=== PATIENT | male | born 2000 | race African-American/Black ===

== ENCOUNTER 2021-07-24 07:29 | Emergency (ER) | payer OTHER, SELFPAY ==
[2021-07-24 07:30] VITALS: BP 113/85; PULSE 61; RESP 20; TEMP 36.3; O2SAT 100; BMI 21.7
--- NOTE | 2021-07-24 07:45 | RAD_ITS ---
STUDY: X-RAY - ACUTE ABDOMINAL SERIES REASON FOR EXAM: Male, 20 years old. Abd pain TECHNIQUE: Single view of the chest. Supine, and erect view(s) of the abdomen were obtained. COMPARISON: None. FINDINGS: The lungs are clear and expanded. Normal size heart. Normal mediastinum and olivia. Normal visualized pulmonary arteries. Normal visualized aortic arch and descending thoracic aorta. There is a non-specific bowel gas pattern. The soft tissue structures of the abdomen and pelvis are unremarkable. Normal visualized osseous structures. RAD/Acute Abdomen Inc Chest IMPRESSION: Normal x-ray examination of the chest, abdomen, and pelvis. Electronically Signed: Abdias Joseph MD at 9:15 EDT , Service support ,
--- NOTE | 2021-07-24 07:47 | EX.ED.DYSGE1 ---
HPI History of Present Illness Chief Complaint: Abd Pain Narrative Narrative: Patient is a otherwise healthy 20-year-old male with past medical history of anxiety. He states he began with generalized abdominal discomfort and bouts of vomiting yesterday. He states that the vomiting has improved but the nausea has persisted. He states that his anxiety is also spiking and he is having lots of tremors and shakes. He denies any fevers or chills but was concerned that as his symptoms are lasting longer than a normal anxiety attack he was becoming dehydrated or infected and therefore comes in for evaluation. [facility] Medical History (Updated 07/24/21 @ 09:[address] Mynor Aragon, DO) Anxiety Home Medications ondansetron HCl [Zofran] 4 mg PO Q8H PRN #21 tab 07/24/21 [Rx Last Taken Unknown] Allergy/AdvReac Type Severity Reaction Status Date / Time No Known Allergies Allergy Verified 07/24/21 07:31 Social History Smoking Status: Light Smoker (<10/day) ROS ROS ED Constitutional Constitutional ED: Denies chills or fever(s) ENT ENT ED: Denies sore throat Cardiovascular Cardiovascular: Denies chest pain Respiratory/Chest Respiratory/Chest: Denies cough or dyspnea Gastrointestinal Gastrointestinal: Reports abdominal pain, nausea and vomiting; Denies diarrhea Genitourinary Genitourinary ED: Denies dysuria Musculoskeletal Musculoskeletal: Denies myalgias Integumentary Denies rash Neurologic Neurologic: Denies headache(s) Psychiatric Psychiatric: Reports anxiety Hematologic/Lymphatic Hematologic/Lymphatic: Denies easy bleeding or easy bruising EXAM Physical Exam Const Vital Signs: 07/24/21 07:30 Temperature 97.4 F L Temperature Source Oral Pulse Rate 61 Respiratory Rate 20 H Blood Pressure 113/85 H Blood Pressure Mean 94 Pulse Ox 100 Oxygen Delivery Method Room Air Positive well nourished and well developed General Appearance ED: well developed HEENT Reports dry mucous membranes Mouth ED: Yes dry mucous membranes Mouth: dry mucous membranes Eyes PERRL and EOMs intact bilaterally Neck supple Neck Narrative: No crepitance noted no pain with external ambulation of the thyroid cartilage Resp normal respiratory effort and clear to auscultation bilaterally Cardio regular rate and regular rhythm GI non-tender and non-distended Auscultation: normoactive bowel sounds Palpation: soft Back/Spine Back/Spine Narrative: No CVA pain Extremity normal to inspection Neuro oriented x3 and CN's II-XII intact bilaterally Sensorium / Orientation: alert Psych Mood & Affect: anxious Skin no rashes or lesions noted MDM MDM MDM Narrative Medical decision making narrative: Patient presented to the ER afebrile and with a soft nonsurgical abdomen so I felt no need for for an emergent CT scan. Basic labs were obtained which showed no clinically significant findings and a acute abdominal series revealed no free air or signs of obstruction. Patient was given IV fluids Zofran and Ativan and did report resolution of his symptoms. On reevaluation he is resting comfortably. Based on his history and exam I feel he has a viral stomach infection which precipitated an acute anxiety exacerbation. At this time however as overall work-up is negative and symptoms have been resolved I feel he is safe for discharge Lab Data Labs: Laboratory Results - last 24 hr 07/24/21 07/24/21 07:55 07:55 WBC 7.2 RBC 5.23 Hgb 14.9 Hct 44.9 MCV 85.9 MCH 28.5 MCHC 33.2 RDW Std Deviation 35.8 RDW Coeff of Jennifer 11.4 L Plt Count 334 MPV 10.3 Immature Gran % (Auto) 0.100 Neut % (Auto) 62.1 Lymph % (Auto) 27.8 [place] % (Auto) 9.0 Eos % (Auto) 0.3 Baso % (Auto) 0.7 Absolute Neuts (auto) 4.4 Absolute Lymphs (auto) 1.99 Nucleated RBC % 0 Sodium 139 Potassium 3.5 Chloride 106 Carbon Dioxide 27.0 Anion Gap 6 BUN 20 H Creatinine 1.14 Estim Creat Clear Calc 108.51 Est GFR (MDRD) Af Amer 103 Est GFR (MDRD) Non-Af 86 BUN/Creatinine Ratio 17.5 Glucose 92 Calcium 10.2 H Magnesium 2.0 Total Bilirubin 2.40 H Direct Bilirubin 0.42 H AST 17 ALT 34 Alkaline Phosphatase 83 Total Protein 8.6 H Albumin 4.4 Globulin 4.2 Lipase 78 Radiography Diagnostic Testing: Radiology Impression Acute Abdomen Series 07/24/21 07:45 IMPRESSION: Normal x-ray examination of the chest, abdomen, and pelvis. Electronically Signed: Abdias Joseph MD at 9:15 EDT , Service support , Discharge Plan Triage Chief Complaint: Abd Pain ED Provider: Mynor Aragon Dx/Rx/DC Orders Clinical Impression: Nausea & vomiting, Anxiety attack Instructions: Anxiety Disorders Tx Therapy, ED Gastroenteritis, Viral (Adult) Prescriptions: New ondansetron HCl [Zofran] 4 mg tablet 4 mg PO Q8H PRN (Reason: nausea and vomiting) Qty: 21 RF: 0 Primary Care Provider: Teddy Guallpa Referrals: Teddy Guallpa MD [Primary Care Provider] - Disposition Disposition: Home, Self Care
[2021-07-24] MEDS: LORazepam 2 MG/ML Syringe 1 MG IV (08:05)
[2021-07-24] MEDS: Ondansetron 4 MG/2 ML Vial IV (08:05)
[2021-07-24] MEDS: 0.9% Normal Saline 1,000 ML 999 ML IV (08:05)
[2021-07-24 08:06] LABS: Absolute Lymphocyte Count 1.99 X10^3/uL (0.83-4.51); Absolute Neutrophil Count 4.4 X10^3/uL (2.0-7.7); Basophil# 0.05 X10^3/uL; Basophil% 0.7 % (0-1); Eosinophil# 0.02 X10^3/uL; Eosinophils% 0.3 % (0-5); Hematocrit 44.9 % (40-54); Hemoglobin 14.9 g/dL (13.0-16.5); Lymphocyte # 1.99 X10^3/ul (0.83-4.51); Lymphocyte % 27.8 % (19-41); Mean Corp Hgb Conc 33.2 g/dL (32-36); Mean Corpuscular Hgb 28.5 pg (27.0-32.0); Mean Corpuscular Volume 85.9 fL (80-94); Mean Platelet Vol. 10.3 fl (6.2-12.0); Monocyte# 0.64 X10^3/uL; NRBC Flagged by Analyzer 0 % (0-5); Neutrophil # 4.44 X10^3/uL (2.7-7.7); Neutrophil % 62.1 % (47-70); Platelet Count 334 K/mm3 (150-450); RBC Distribution Width CV 11.4 % (11.6-14.6); RBC Distribution Width SD 35.8 fl (35.1-43.9); Red Blood Count 5.23 M/mm3 (4.6-6.2); White Blood Count 7.2 K/mm3 (4.4-11.0)
[2021-07-24 08:19] LABS: AST(SGOT) 17 U/L (15-37); Alanine Aminotransfer ALT/SGPT 34 U/L (16-61); Albumin, Serum 4.4 g/dL (3.2-5.0); Alkaline Phosphatase 83 U/L (45-117); Anion Gap 6 (5-15); BUN 20 mg/dL (7-18); BUN/Creat Ratio 17.5 RATIO (10-20); Bilirubin, Direct 0.42 mg/dL (0.00-0.30); Calcium,Total 10.2 mg/dL (8.5-10.1); Chloride 106 mmol/L (98-107); Creatinine, Serum 1.14 mg/dL (0.70-1.30); EST Glomerular Filtration Rate 86 mL/min (>60); Est Glom Filt Rate - Afr Amer 103 mL/min (>60); Estimated Creatinine Clearance 108.51 ml/min; Globulin 4.2 g/dL (2.2-4.2); Glucose 92 mg/dL (74-106); Lipase 78 U/L (73-393); Potassium 3.5 mmol/L (3.5-5.1); Protein, Total 8.6 g/dL (6.4-8.2); Sodium Level 139 mmol/L (136-145)
[2021-07-24 11:20] VITALS: PULSE 72; RESP 16; O2SAT 99
== END 2021-07-24 11:31 | disposition home or self-care (01) ==
PROVIDERS: Emergency Provider Emergency Medicine; PCP Pediatrics
DX: R11.2 Nausea with vomiting, unspecified (principal); F41.9 Anxiety disorder, unspecified; F17.200 Nicotine dependence, unspecified, uncomplicated
CPT/HCPCS: 74022; 80048; 80076; 83690; 83735; 85025; 96361; 96374; 96375; 99282; J7030; J2405

== ENCOUNTER 2021-08-26 10:31 | Emergency (ER) | payer OTHER, SELFPAY ==
[2021-08-26 10:33] VITALS: BP 114/59; PULSE 73; RESP 17; TEMP 36.2; O2SAT 100; BMI 22.4
[2021-08-26 10:39] VITALS: RESP 22
--- NOTE | 2021-08-26 10:42 | EX.ED.DYSGE1 ---
HPI History of Present Illness Chief Complaint: Anxiety Informant: patient Narrative Narrative: 20-year-old male presents the emergency department with a panic attack. Patient states that he has been dealing with anxiety for over 10 years. He states that his doctor back home prescribed him Paxil and Ativan but he stopped the Paxil. He recently saw the school doctor who prescribed him Celexa but he states he is not interested in taking a daily anxiety medication because in the past 10 months he is only had 2 panic attacks this being the second. He states that when his anxiety flares he has nausea and vomiting. He states in the past 24 hours he really has not been able to keep anything down and then he starts worried about dehydration which only amplifies his anxiety. [facility] Medical History Anxiety Home Medications NK 08/26/21 [History Last Taken Unknown] lorazepam 1 mg PO TID PRN #10 tablet 08/26/21 [Rx Last Taken Unknown] ondansetron 4 mg PO Q8H PRN PRN #15 tab 08/26/21 [Rx Last Taken Unknown] Allergy/AdvReac Type Severity Reaction Status Date / Time No Known Allergies Allergy Verified 08/26/21 10:31 Social History (Updated 08/26/21 @ 10:[address] Kirby Ordonez DO) current gender identity: male Smoking Status: Light Smoker (<10/day) ROS [facility] ED Constitutional Constitutional ED: Denies chills or weight loss Eyes Eyes: Denies change in vision or diplopia ENT ENT ED: Denies ear pain, rhinorrhea or sore throat Cardiovascular Cardiovascular: Denies chest pain, orthopnea, palpitations or racing heartbeat Respiratory/Chest Respiratory/Chest: Denies cough, dyspnea or orthopnea Gastrointestinal Gastrointestinal: Reports nausea and vomiting; Denies abdominal pain or diarrhea Genitourinary Genitourinary ED: Denies dysuria, hematuria or urinary frequency Musculoskeletal Musculoskeletal: Denies arthralgias or myalgias Integumentary Denies abscess or rash Neurologic Neurologic: Denies headache(s) or weakness Psychiatric Psychiatric: Reports anxiety; Denies depression, suicidal ideation or suicidal thoughts Endocrine Endocrinology: Denies polydipsia, polyphagia or polyuria Allergic/Immunologic Allergic/Immunologic ED: Denies mouth swelling, tongue swelling or urticaria EXAM Physical Exam Narrative Exam Narrative: Patient presents in a panicked state unable to sit still. Const Vital Signs: 08/26/21 10:33 08/26/21 10:39 Temperature 97.1 F L Temperature Source Temporal Pulse Rate 73 Respiratory Rate 17 22 H Blood Pressure 114/59 L Blood Pressure Mean 77 Pulse Ox 100 Oxygen Delivery Method Room Air Positive well nourished and well developed General Appearance ED: well developed HEENT Reports normocephalic, head/scalp atraumatic and moist mucous membranes Eyes PERRL and EOMs intact bilaterally Neck no lymphadenopathy, supple and no JVD Resp clear to auscultation bilaterally Resp Narrative: Patient is tachypneic Cardio regular rate and no murmurs Rate: tachycardic GI normal to inspection, nondistended, normoactive bowel sounds and non-tender Palpation: soft Back/Spine no CVA tenderness and normal ROM Extremity normal to inspection General Extremety ED: Negative for edema General Extremity: Negative for edema Neuro oriented x3 and CN's II-XII intact bilaterally Sensorium / Orientation: alert Motor Exam: strength 5/5 throughout Psych Psych Narrative: Fidgety pacing the room Mood & Affect: anxious; Negative for depressed or tearful Skin no rashes or lesions noted and no wounds MDM MDM MDM Narrative Medical decision making narrative: Patient received IV fluids, Ativan, and Zofran. Basic blood work was obtained. Basic blood work was obtained essentially negative. Repeat examination finds him to be resting comfortably. He is appreciative of the care. I plan to discharge him home with some Zofran and a few Ativan. He was advised he needs to get with his doctors and come up with a plan for his anxiety. I do think a daily medication like an SSRI would benefit him but he is resistant to this approach. Lab Data Attestation: I reviewed the patient's lab results. Labs: Laboratory Results - last 24 hr 08/26/21 08/26/21 10:50 10:50 WBC 5.6 RBC 5.55 Hgb 15.9 Hct 46.0 MCV 82.9 MCH 28.6 MCHC 34.6 RDW Std Deviation 33.1 L RDW Coeff of Jennifer 10.9 L Plt Count 327 MPV 9.9 Immature Gran % (Auto) 0.400 Neut % (Auto) 70.1 H Lymph % (Auto) 23.1 [place] % (Auto) 5.5 Eos % (Auto) 0.0 Baso % (Auto) 0.9 Absolute Neuts (auto) 3.9 Absolute Lymphs (auto) 1.30 Nucleated RBC % 0 Sodium 140 Potassium 3.9 Chloride 105 Carbon Dioxide 29.0 Anion Gap 6 BUN 16 Creatinine 1.15 Estim Creat Clear Calc 107.56 Est GFR (MDRD) Af Amer 102 Est GFR (MDRD) Non-Af 85 BUN/Creatinine Ratio 13.9 Glucose 106 Calcium 10.6 H Total Bilirubin 1.60 H AST 33 ALT 31 Alkaline Phosphatase 93 Total Protein 8.9 H Albumin 4.6 Globulin 4.3 H Albumin/Globulin Ratio 1.1 Lipase 76 Discharge Plan Triage Chief Complaint: Anxiety ED Provider: Kirby Ordonez Dx/Rx/DC Orders Clinical Impression: Panic attack, Nausea and vomiting Instructions: ED Panic Attack Prescriptions: New lorazepam [lorazepam] 1 MG tablet 1 mg PO TID PRN (Reason: anxiety) Qty: 10 RF: 0 ondansetron [ondansetron] 4 MG tablet 4 mg PO Q8H PRN PRN (Reason: Nausea) Qty: 15 RF: 0 No Action NK RF: 0 Primary Care Provider: Teddy Guallpa Referrals: Teddy Guallpa MD [Primary Care Provider] - As soon as possible Activity Restrictions/Additional Instructions: Please follow-up with your doctors to discuss a treatment plan for your anxiety Disposition Disposition: Home, Self Care
[2021-08-26] MEDS: 0.9% Normal Saline 1,000 ML 1000 ML IV (10:52)
[2021-08-26] MEDS: LORazepam 2 MG/ML Syringe 1 MG IV (10:53)
[2021-08-26] MEDS: Ondansetron 4 MG/2 ML Vial IV (10:53)
[2021-08-26 10:58] LABS: Absolute Neutrophil Count 3.9 X10^3/uL (2.0-7.7); Basophil# 0.05 X10^3/uL; Basophil% 0.9 % (0-1); Hemoglobin 15.9 g/dL (13.0-16.5); Lymphocyte % 23.1 % (19-41); Mean Corp Hgb Conc 34.6 g/dL (32-36); Mean Corpuscular Hgb 28.6 pg (27.0-32.0); Mean Corpuscular Volume 82.9 fL (80-94); Mean Platelet Vol. 9.9 fl (6.2-12.0); Monocyte# 0.31 X10^3/uL; Monocyte% 5.5 % (0-10); NRBC Flagged by Analyzer 0 % (0-5); Neutrophil # 3.94 X10^3/uL (2.7-7.7); Neutrophil % 70.1 % (47-70); Platelet Count 327 K/mm3 (150-450); RBC Distribution Width CV 10.9 % (11.6-14.6); RBC Distribution Width SD 33.1 fl (35.1-43.9); Red Blood Count 5.55 M/mm3 (4.6-6.2); White Blood Count 5.6 K/mm3 (4.4-11.0)
[2021-08-26 11:14] LABS: ALB/GLOB Ratio 1.1 RATIO (0.9-2.4); AST(SGOT) 33 U/L (15-37); Alanine Aminotransfer ALT/SGPT 31 U/L (16-61); Albumin, Serum 4.6 g/dL (3.2-5.0); Alkaline Phosphatase 93 U/L (45-117); Anion Gap 6 (5-15); BUN 16 mg/dL (7-18); BUN/Creat Ratio 13.9 RATIO (10-20); Calcium,Total 10.6 mg/dL (8.5-10.1); Chloride 105 mmol/L (98-107); Creatinine, Serum 1.15 mg/dL (0.70-1.30); EST Glomerular Filtration Rate 85 mL/min (>60); Est Glom Filt Rate - Afr Amer 102 mL/min (>60); Estimated Creatinine Clearance 107.56 ml/min; Globulin 4.3 g/dL (2.2-4.2); Glucose 106 mg/dL (74-106); Lipase 76 U/L (73-393); Potassium 3.9 mmol/L (3.5-5.1); Protein, Total 8.9 g/dL (6.4-8.2); Sodium Level 140 mmol/L (136-145)
[2021-08-26 12:17] VITALS: BP 117/67; PULSE 63; RESP 18; O2SAT 99
--- NOTE | 2021-08-26 12:18 | ED.RN ---
REVIEWED D/C INSTRUCTIONS, FOLLOW UP CARE, PRESCRIPTIONS, AND S/S THAT WOULD WARRANT A RETURN TO THE ED WITH PT. PT VERBALIZED AN UNDERSTANDING AND DENIES FURTHER QUESTIONS FOR THIS RN. PT SKIN P/W/D, RESP EVEN AND UNLABORED, PT A&O X 3, NO DISTRESS NOTED. PT AMBULATED OUT OF ED, GAIT STEADY.
== END 2021-08-26 12:21 | disposition home or self-care (01) ==
PROVIDERS: Emergency Provider Emergency Medicine; PCP Pediatrics
DX: F41.0 Panic disorder [episodic paroxysmal anxiety] (principal); R11.2 Nausea with vomiting, unspecified; F17.200 Nicotine dependence, unspecified, uncomplicated
CPT/HCPCS: 80053; 83690; 85025; 96361; 96374; 96375; 99283; J7030; A4216; J2405